=== PATIENT | male | born 1960 | race Caucasian/White ===

== ENCOUNTER 2020-10-10 11:34 | Outpatient (CLI) | payer OTHER ==
--- NOTE | 2020-10-10 13:42 | MRI ---
MRI LOWER EXTREMITY JOINT RIGHT WITHOUT CONTRAST: History: Fall. Pain. Comparison: Knee radiograph October 01, 2020. Findings: Medial meniscus: Intact. Lateral meniscus: Incomplete radial oblique tear lateral meniscal posterior root with moderate scar a nd granulation tissue in situ. Nondisplaced superior articular surface horizontal tear lateral meniscal body. ACL, PCL, MCL and LCL are all intact. Extensor mechanism: Quadriceps tendon, patella and patellar tendon are intact. Cartilage: Patellofemoral compartment: There are a few 75% chondral fissures of the lateral patellar facet and p atellar apex. There are also 50-70 traversing chondral fissures of the lateral trochlea and trochlear groove. Medial compartment: Along the central weightbearing surface medial femoral condyle is relatively high -grade chondral delamination, full-thickness, at risk for displacement. There are also a few central articular surface osteophytes with high-grade chondral loss of the lateral weightbearing surf eveline medial femoral condyle. There is a full-thickness defect of cartilage along the lateral weight bearing surface medial femoral condyle measuring 17 mm in AP dimension with a width of 8 mm. Soft tissues: Small joint effusion. No significant popliteal cyst. Muscles: Muscle signal and bulk is normal. IMPRESSION: 1. Chronic appearing radial oblique tear lateral meniscal root with scar or granulation tissue in sit u. 1 mm lateral gutter extrusion lateral meniscal body. 2. Low-grade superior articular surface nondisplaced flap tear of the lateral meniscal body with mild mucinous degeneration. 3. Full-thickness chondral defect with developing central osteophyte formation lateral weightbearing surface medial femoral condyle measuring 8 mm in transverse and 17 mm in AP dimension. 4. Multifocal grade III chondral fissures of the patellofemoral compartment. 5. Intact cruciate ligaments and medial meniscus. Transcribed Date/Time: 10/10/2020 2:07 PM
== END 2020-10-10 11:35 | disposition home or self-care (01) ==
LOC: BICMRI 11:34
PROVIDERS: ATTEND Orthopaedic Surgery
DX: M25.561 Pain in right knee (principal); S83.281A Other tear of lateral meniscus, current injury, right knee, initial encounter

== ENCOUNTER 2021-01-15 09:10 | Outpatient (CLI) | payer OTHER | END 2021-01-15 09:11 | disposition home or self-care (01) | LOC: BICRAD 09:10 | PROVIDERS: ATTEND Family Medicine | DX: M79.642 Pain in left hand (principal); M19.042 Primary osteoarthritis, left hand ==

== ENCOUNTER 2021-08-16 09:31 | Outpatient (CLI) | payer MEDICARE, OTHER ==
[2021-08-16 11:23] LABS: #Basophils 0.1 10x3/uL (0.0-0.2); #Eosinphils 0.1 10x3/uL (0.0-0.5); #Monocytes 0.7 10x3/uL (0.0-1.1); #Neutrophils 3.5 10x3/uL (1.5-8.4); %Basophils 1.1 % (0.0-2.0); %Lymphocytes 19.4 % (18.0-47.0); %Monocytes 13.3 % (0.0-10.0); %Neutrophils 63.8 % (40.0-75.0); Hemoglobin 17.1 g/dL (13.5-17.5); Mean Corpuscular HGB CONC 33.4 g/dL (32.0-36.0); Mean Corpuscular Hemoglobin 28.8 pg (27.0-33.0); Mean Corpuscular Volume 86.3 fl (81.2-95.1); Mean Platelet Volume 9.9 fl (7.4-10.4); Platelet Count 226 10x3/uL (150-450); Red Blood Cell (RBC) Count 5.93 10x6/uL (4.32-5.72); White Blood Cell (WBC) Count 5.4 10x3/uL (3.5-10.5)
[2021-08-16 11:25] LABS: #Lymphocytes 1.1 10x3/uL (0.7-4.9)
[2021-08-16 11:43] LABS: ALT (SGPT) 70 U/L (8-55); AST (SGOT) 60 U/L (5-34); Albumin 3.8 g/dL (3.5-5.0); Alkaline Phosphatase 75 U/L (40-110); Anion Gap 12 mmol/L (10-20); BUN (Urea Nitrogen) 8 mg/dL (8.4-25.7); Bilirubin, Total 0.9 mg/dL (0.2-1.2); Calc. Creatinine Clearance 0 mL/min (70-130); Calcium 9.8 mg/dL (7.8-10.44); Carbon Dioxide 30 mmol/L (22-29); Chloride 100 mmol/L (98-107); Globulin 3.8 g/dL (2.4-3.5); Glucose 123 mg/dL (70-105); Potassium 4.3 mmol/L (3.5-5.1); Protein, Total 7.6 g/dL (6.0-8.3); Sodium 138 mmol/L (136-145)
[2021-08-17 14:11] LABS: SARS-CoV-2 PCR by NAA Not Detected (NotDetected)
== END 2021-08-16 09:32 | disposition home or self-care (01) ==
LOC: LAB 09:31
PROVIDERS: ATTEND Surgery
DX: Z01.812 Encounter for preprocedural laboratory examination (principal); Z20.822 Contact with and (suspected) exposure to COVID-19
CPT/HCPCS: 80053; 85025; 93005; 93010; U0003; U0005

== ENCOUNTER 2021-08-20 11:23 | Day surgery (SDC) | payer OTHER ==
[2021-08-19 13:55] VITALS: BMI 33.9
[2021-08-20] MEDS ORDERED: ceFAZolin 2 GM/DEX 5% 100 ML BAG ONE (12:12)
[2021-08-20] MEDS ORDERED: Lidocaine 1% w/Epinephrine 1:100K 30 ML VIAL ONE (12:24)
[2021-08-20] MEDS ORDERED: Bupivacaine PF 0.5% 30 ML VIAL ONE (12:24)
[2021-08-20] MEDS ORDERED: Famotidine/PF 20 mg/2ml Vial ONE (12:37)
[2021-08-20] MEDS ORDERED: Fentanyl 100 MCG/2 ML VIAL ONE ×2 (12:37→13:47)
[2021-08-20] MEDS ORDERED: Lidocaine 1% PF 5 ML VIAL ONE (12:46)
[2021-08-20] MEDS ORDERED: Metoclopramide HCl 10 MG/2 ML VIAL ONE (12:46)
[2021-08-20] MEDS ORDERED: PROPOFOL 200 MG/20 ML VIAL ONE (12:46)
[2021-08-20] MEDS ORDERED: Ondansetron PF 4 MG/2 ML Vial ONE (12:46)
== END 2021-08-20 14:45 | disposition home or self-care (01) ==
LOC: SDC 11:23
PROVIDERS: ATTEND Surgery
PROC: 0WUF0JZ Supplement Abdominal Wall with Synthetic Substitute, Open Approach (ICD-10-PCS; principal; 2021-08-20)
DX: K42.9 Umbilical hernia without obstruction or gangrene (principal); I10 Essential (primary) hypertension; F17.290 Nicotine dependence, other tobacco product, uncomplicated; Z79.899 Other long term (current) drug therapy; Z88.8 Allergy status to other drugs, medicaments and biological substances
CPT/HCPCS: C1781; J2405; J2704; J2765; J3010; S0020; S0028

== ENCOUNTER 2024-09-30 07:27 | Outpatient (CLI) | payer BC | END 2024-09-30 07:28 | disposition home or self-care (01) | LOC: ULT 07:27 | PROVIDERS: ATTEND Internal Medicine Rheumatology | DX: R74.8 Abnormal levels of other serum enzymes (principal); K76.0 Fatty (change of) liver, not elsewhere classified; Z90.49 Acquired absence of other specified parts of digestive tract | CPT/HCPCS: 76705 ==